=== PATIENT | male | born 1975 | race Caucasian/White ===

== ENCOUNTER 2016-10-20 16:57 | Emergency (ER) | payer BC ==
[2016-10-20 17:28] LABS: Hematocrit 47.5 % (42.0-52.0); Hemoglobin 16.9 gm/dL (13.5-18.0); Mean Cell Volume 91.7 fl (78-100); Mean Corpuscular Hemoglobin 32.6 pg (27-31); Mean Corpuscular Hgb Conc 35.6 g/dl (32-36); Mean Platelet Volume 9.3 fl (6.0-9.5); Neutrophil # 3.1 K/mm3 (1.3-6.0); Neutrophil % 47.2 % (42-75.0); Platelet Count 224 K/mm3 (150-450); Red Blood Count 5.18 M/mm3 (4.7-6.0); Red Cell Distribution Width 12.7 % (11.5-14.0); White Blood Count 6.5 K/mm3 (4.0-10.5)
[2016-10-20 17:29] LABS: Urine Bilirubin Negative (NEGATIVE); Urine Blood Negative /ul (NEGATIVE); Urine Ketone Negative (NEGATIVE); Urine Nitrite Negative (NEGATIVE); Urine Protein Negative (NEGATIVE); Urine Specific Gravity <=1.005 SP.GR. (1.005-1.030); Urine Urobilinogen Normal (NORMAL)
[2016-10-20 17:40] LABS: Albumin * 4.3 gm/dl (3.4-5.0); Anion Gap 14.7 mmol/L (6.8-13.8); Bilirubin, Total 0.3 mg/dL (0.0-1.1); Ca. Corrected For Albumin 8.7 mg/dL (8.4-10.2); Calcium * 9.3 mg/dL (7.9-10.9); Carbon Dioxide 25.1 mmol/L (24-32.6); Potassium 3.8 mmol/L (3.4-4.6); Total Protein 7.8 gm/dL (6.2-8.2)
[2016-10-20 17:46] LABS: Urine Appearance Clear; Urine Color Colorless; Urine RBC None Seen /hpf (0-5); Urine WBC None Seen /hpf (0-5)
[2016-10-20 17:47] LABS: Urine Bacteria None Seen; Urine Other Crystal TRACE /hpf
--- NOTE | 2016-10-20 18:00 | ERNOTE ---
Abdominal HPI - Narrative Date of Service: 10/20/16 - General Chief Complaint: Abdominal Pain Time Seen by Provider: 10/20/16 17:31 Source: patient, RN notes reviewed Exam Limitations: no limitations - Immun/Allergies/Home Medications Immunizatons: IMMUNIZATION HX Immunizations Up to Date Yes History of Influenza Vaccine No Hx Pneumococcal Vaccination No Allergies/Adverse Reactions: Allergies No Known Drug Allergies Allergy (Verified 10/20/16 17:12) Home Medications: HOME MEDICATIONS ALPRAZolam [Xanax] 0.5 mg PO BID PRN 11/29/15 [Last Taken Unknown] - History of Present Illness Narrative: 40 y/o male with RLQ abdominal pain that began 2 days ago. He also reports malaise and occasional light headedness. He denies needing pain medication on initial evaluation. Timing: constant, getting worse Activities at Onset: none Modifying Factors - (Improves): Present: rest Modifying Factors - (Worsens): Present: movement Prior Abdominal Problems: Present: other - hernia. Absent: recent trauma Review of Systems - Review of Systems Constitutional: Present: malaise, decreased activity level. Absent: fever, chills EYE: Present: no symptoms reported ENT: Present: no symptoms reported Respiratory: Absent: shortness of breath, cough Cardiology: Absent: chest pain, palpitations Gastrointestinal/Abdominal: Present: abdominal pain. Absent: nausea, vomiting, diarrhea, constipation, eating less, drinking less Genitourinary: Absent: frequency, dysuria, hematuria Musculoskeletal: Present: back pain. Absent: neck pain, joint pain Skin: Absent: rash, lesions, lumps Neurological: Absent: headache, dizziness/light-headedness Endocrine: Present: no symptoms reported Hematologic/Lymphatic: Absent: easy bruising, easy bleeding Psych: Present: no symptoms reported - Patient's Past Medical History Patient History - Medical: Anxiety, Chronic Pain Patient History - Cardiac/Respiratory: No pertinent hx Patient History - Cancer: No Hx of Cancer Patient History - Surgical Procedures: Vasectomy, Other, Hernia Repair Patient History - Other: None - Social History Living Situations: home Abuse History: No History of abuse Psych History: No pertinent hx Smoking Status: Current every day smoker Alcohol Use: rarely Drug Use: marijuana - Immunizations Immunizations Up to Date: Yes Hx Pneumococcal Vaccination: No History of Influenza Vaccine: No Physical Exam - Physical Exam General Appearance: Present: wd/wn, alert, no apparent distress Neck: Present: normal inspection, nontender, supple Respiratory: Present: no respiratory distress, normal breath sounds, no accessory muscle use, chest nontender, lungs clear Cardiovascular/Chest: Present: regular rate, rhythm, no murmur, normal peripheral pulses Gastrointestinal/Abdominal: Present: normal bowel sounds, nondistended, soft, tenderness - RLQ, rebound. Absent: guarding, mass, hernia Back Exam: Present: normal inspection, no CVA tenderness Extremity Exam: Present: normal inspection, no edema Neurological Exam: Present: alert, oriented, normal mood/affect, no motor/ sensory deficits Skin Exam: Present: normal color, warm/dry ED Progress - Results and Orders Patient's Lab Results:: I have reviewed the patient's lab results. - Vital Signs Patient's Vital Signs:: I have reviewed the patient's vital signs. Vital Signs: Vital Signs 10/20/16 17:08 Temperature 36.7 C Pulse Rate 78 Respiratory 14 Rate Blood Pressure 112/75 O2 Sat by Pulse 95 Oximetry - X-Ray X-Ray #1 X-Ray: abdomen Interpretation: Reviewed by me X-ray Comments: Technique: Supine and upright views the abdomen utilizing 4 total images. Findings: Mild fecal retention seen throughout the colon. Some scattered air-filled loops of small bowel identified. No dilation of the small bowel to suggest obstruction. Surgical coils seen in the left pelvis likely related to inguinal hernia repair. Surgical clips in the right pelvis. Degenerative change of the spine and hips. IMPRESSION: 1. MILD FECAL RETENTION WITHOUT EVIDENCE FOR OBSTRUCTION. 2. SCATTERED NONDILATED AIR-FILLED LOOPS OF SMALL BOWEL WHICH COULD REPRESENT GASTROENTERITIS GIVEN THE SYMPTOMS. - Progress/Reassessment Chief Complaint: Abdominal Pain Progress:: Unchanged Plan - Plan Plan: No elevation in WBC or inflammatory markers to suggest appendicitis after 48 hours of pain. Discussed need for further evaluation if pain persists or worsens despite resolution of stool retention. Patient in agreement with plan. Departure - Departure Clinical Impression: RLQ abdominal pain Constipation Qualifiers: Constipation type: unspecified constipation type Qualified Code(s): K59.00 - Constipation, unspecified Disposition: Home Follow Up Needed Condition: Stable Instructions: Abdominal Pain, Adult, [id number] Additional Instructions: Drink entire bottle of magnesium citrate when you get home - follow with a large glass of water Return to the ER if pain persists or worsens Referrals: Abel Mckenna MD [Primary Care Provider] -
[2016-10-20 18:45] VITALS: BP 126/84
== END 2016-10-20 18:43 | disposition home or self-care (01) ==
LOC: ER 16:57
DX: R10.31 Right lower quadrant pain (principal); F17.200 Nicotine dependence, unspecified, uncomplicated; F41.9 Anxiety disorder, unspecified